=== PATIENT | female | born 1980 | race Two or more races ===

== ENCOUNTER 2023-04-30 14:46 | Emergency (ER) | payer OTHER ==
[~2023-04-30] VITALS: Ht 162.6 cm; Wt 104.3 kg
[2023-04-30] MEDS ORDERED: LEXAPRO5 MG PO (15:46)
[2023-04-30] MEDS ORDERED: NEURAPTINE1 GM TP (15:46)
== END 2023-04-30 17:18 ==
LOC: ER 14:46
DX: R60.0 Localized edema (principal); L03.213 Periorbital cellulitis